=== PATIENT | female | born 1980 | race Hispanic/Latino ===

== ENCOUNTER 2017-06-11 14:29 | Emergency (ER) | payer OTHER ==
[2017-06-11 15:11] VITALS: BP 133/80
--- NOTE | 2017-06-11 15:20 | Emergency Department Report ---
HPI - General Chief Complaint: Seizure Time Seen by Provider: 06/11/17 15:13 - HPI HPI: PATIENT STATES H/O SEIZURE DISORDER, HAD A SEIZURE TODAY. PATIENT IS CURRENTLY ALERT AND ORIENTED, AND IS REFUSING ALL LABS AND TESTS, STATING SHE HAS A H/O SEIZURES AND HAS HAD THEM BEFORE. ED Past Medical Hx - Past Medical History Previous Medical History?: Yes Hx Seizures: Yes Hx Psychiatric Treatment: Yes (Bi-polar) - Family History Family history: hypertension - Social History Smoking Status: Current Every Day Smoker Substance Use Type: None ED Review of Systems ROS: Stated complaint: SEIZURES Other details as noted in HPI Comment: All other systems reviewed and negative Skin: as per HPI Neurological: other (SEIZURES) Physical Exam - Physical Exam Vital Signs: Vital Signs 06/11/17 06/11/17 14:32 15:10 Temperature 98.6 F 97.4 F L Pulse Rate 90 81 Respiratory 18 16 Rate Blood Pressure 138/90 Blood Pressure 133/80 [Right] O2 Sat by Pulse 100 99 Oximetry Physical Exam: - General Limitations: No Limitations General appearance: alert, in no apparent distress - Eye Eye exam: Present: normal appearance - Neck Neck exam: Present: normal inspection LUNGS: CTA BRADLEY CV: RRR, NL S1, S2 ABD: S,NT,ND POST BS NEURO: NO FOCAL DEFICITS - Back Exam Back exam: Absent: vertebral tenderness - Neurological Exam Neurological exam: Present: alert, oriented X3 - Psychiatric Psychiatric exam: Present: normal affect, normal mood - Skin Skin exam: Present: warm, dry, intact, normal color. Absent: rash ED Course Vital Signs 06/11/17 06/11/17 14:32 15:10 Temperature 98.6 F 97.4 F L Pulse Rate 90 81 Respiratory 18 16 Rate Blood Pressure 138/90 Blood Pressure 133/80 [Right] O2 Sat by Pulse 100 99 Oximetry Critical care attestation.: If time is entered above; I have spent that time in minutes in the direct care of this critically ill patient, excluding procedure time. ED Disposition Clinical Impression: Seizure disorder, Medical clearance for psychiatric admission Disposition: DC-01 TO HOME OR SELFCARE Is pt being admited?: No Does the pt Need Aspirin: No Condition: Stable Forms: Work/School Release Form(ED)
== END 2017-06-11 17:07 | disposition home or self-care (01) ==
LOC: ED 14:29
DX: G40.909 Epilepsy, unspecified, not intractable, without status epilepticus (principal); Z00.8 Encounter for other general examination; F31.9 Bipolar disorder, unspecified; F17.200 Nicotine dependence, unspecified, uncomplicated
CPT/HCPCS: 99283

== ENCOUNTER 2018-07-20 16:20 | Inpatient (IN) | payer MEDICARE, OTHER ==
[2018-07-20] MEDS ORDERED: ATIVAN IV ONE (16:31)
[2018-07-20] MEDS ORDERED: NACL 0.9% 1000 ML 1,000 ML IV ONE ×2 (16:31→16:32)
[2018-07-20] MEDS ORDERED: ATIVAN ONE (16:32)
--- NOTE | 2018-07-20 16:38 | Emergency Department Report ---
ED Seizure HPI - General Stated Complaint: SEIZURES Time Seen by Provider: 07/20/18 16:31 - History of Present Illness Initial Comments: Patient is 38 years old female with history of benzo abuse. Patient brought to the ER via EMS in status epilepticus. EMS stated that patient was seen at [place] this morning and she signed herself AMA and straight to [facility]. EMS gave Versed up to 10 mg that aborted the seizure for a while and then patient started seizing again. Upon arrival to the ER , airway is intact with an oxygen saturation of 98% on nonrebreather. Patient did not have an IV access, left extended jugular vein accessed by me and patient given 2 mg of Ativan that up oriented times seizure. Patient airway suctioned. MD Complaint: seizure -: Sudden Description of Episode: loss of consciousness, tonic-clonic movement, bladder incontinence, post-event confusion Seizure History: none Treatments Prior to Arrival: benzodiazepines - Related Data Allergies Allergy/AdvReac Type Severity Reaction Status Date / Time No Known Allergies Allergy Verified 06/11/17 14:32 ED Review of Systems ROS: Stated complaint: SEIZURES Other details as noted in HPI Comment: Unobtainable due to pts medical conditions ED Past Medical Hx - Past Medical History Hx Seizures: Yes Hx Psychiatric Treatment: Yes (Bi-polar) - Social History Smoking Status: Current Every Day Smoker Substance Use Type: None ED Physical Exam - General Limitations: Altered Mental Status General appearance: obtunded - Head Head exam: Present: atraumatic, normocephalic, normal inspection - Eye Eye exam: Present: normal appearance, PERRL - ENT ENT exam: Present: normal exam, mucous membranes moist, other (foaming at mouth) - Neck Neck exam: Present: normal inspection, full ROM. Absent: tenderness, meningismus, lymphadenopathy, thyromegaly - Respiratory Respiratory exam: Present: normal lung sounds bilaterally. Absent: respiratory distress, wheezes, rales, rhonchi, chest wall tenderness, accessory muscle use, decreased breath sounds, prolonged expiratory - Cardiovascular Cardiovascular Exam: Present: regular rate, normal rhythm, normal heart sounds - GI/Abdominal GI/Abdominal exam: Present: soft, normal bowel sounds. Absent: distended, tenderness, guarding, rebound, rigid, organomegaly, mass, bruit, pulsatile mass , hernia - Extremities Exam Extremities exam: Present: normal inspection, full ROM, normal capillary refill. Absent: tenderness, pedal edema, joint swelling, calf tenderness - Back Exam Back exam: Present: normal inspection, full ROM. Absent: tenderness, CVA tenderness (R), CVA tenderness (L), muscle spasm, paraspinal tenderness, vertebral tenderness - Neurological Exam Neurological exam: Present: alert, altered, CN II-XII intact, reflexes normal - Skin Skin exam: Present: warm, intact, normal color ED Course Vital Signs 07/20/18 07/20/18 07/20/18 16:31 16:50 17:16 Temperature 98.2 F Pulse Rate 110 H 94 H 87 Respiratory 24 22 18 Rate Blood Pressure 125/69 104/64 Blood Pressure 109/67 [Right] O2 Sat by Pulse 96 98 94 Oximetry 07/20/18 07/20/18 07/20/18 17:30 17:46 18:00 Temperature Pulse Rate 82 82 74 Respiratory 20 19 17 Rate Blood Pressure 102/65 108/65 109/69 Blood Pressure [Right] O2 Sat by Pulse 94 99 Oximetry 07/20/18 07/20/18 07/20/18 18:15 18:30 18:46 Temperature Pulse Rate 77 81 74 Respiratory 16 14 19 Rate Blood Pressure 115/73 115/73 127/75 Blood Pressure [Right] O2 Sat by Pulse 100 99 Oximetry 07/20/18 07/20/18 07/20/18 19:00 19:16 19:30 Temperature Pulse Rate 76 109 H 103 H Respiratory 10 L 10 L 12 Rate Blood Pressure 127/75 131/81 121/75 Blood Pressure [Right] O2 Sat by Pulse 100 100 94 Oximetry 07/20/18 07/20/18 07/20/18 19:46 20:00 20:16 Temperature Pulse Rate 88 77 76 Respiratory 13 15 17 Rate Blood Pressure 121/75 121/75 121/75 Blood Pressure [Right] O2 Sat by Pulse 98 100 100 Oximetry 07/20/18 07/20/18 07/20/18 20:21 20:30 20:46 Temperature Pulse Rate 74 74 Respiratory 18 19 16 Rate Blood Pressure 121/75 121/75 Blood Pressure [Right] O2 Sat by Pulse 100 99 100 Oximetry 07/20/18 07/20/18 07/20/18 21:00 21:16 21:30 Temperature Pulse Rate 75 100 H 90 Respiratory 19 17 13 Rate Blood Pressure 121/75 121/75 121/75 Blood Pressure [Right] O2 Sat by Pulse 99 100 98 Oximetry 07/20/18 07/20/18 07/20/18 21:46 22:00 22:16 Temperature Pulse Rate 73 74 81 Respiratory 9 L 14 15 Rate Blood Pressure 121/75 121/75 121/75 Blood Pressure [Right] O2 Sat by Pulse 96 95 95 Oximetry 07/20/18 07/20/18 22:30 22:46 Temperature Pulse Rate 81 87 Respiratory 23 14 Rate Blood Pressure 121/75 121/75 Blood Pressure [Right] O2 Sat by Pulse 93 69 L Oximetry - Reevaluation(s) Reevaluation #1: 07/20/18 16:45 Patient has been arrives to the room and able to get more information from him. He stated that patient does have history of seizure and she is on Keppra but she's not been taking her medication for the last 3 weeks. He stated the patient has been using methamphetamine and benzodiazepine. He stated that patient is a [facility] into [facility] for detox and he left to get some food and when he came back she was seizing. Reevaluation #2: 07/20/18 16:58 Patient resting comfortably, no seizure activity noticed. Oxygen saturation is 98% on 2 L nasal cannula. Patient at bedside. - EJ/Peripheral Line Neck L Time Out Performed: Yes Indications: nurses unable to establis Skin Cleansed in Sterile Fashion: Yes Size: 18 Dressing Placed: Tegaderm, tape Patient Tolerated Procedure: well, no complications ED Medical Decision Making - Lab Data Result diagrams: 07/20/18 16:31 07/20/18 18:58 - EKG Data -: EKG Interpreted by Me EKG shows normal: sinus rhythm Rate: normal - EKG Data Interpretation: no acute changes - Medical Decision Making Patient is 38 years old female with history of benzo abuse. Patient brought to the ER via EMS in status epilepticus. EMS stated that patient was seen at [place] this morning and she signed herself AMA and straight to [facility]. EMS gave Versed up to 10 mg that aborted the seizure for a while and then patient started seizing again. Upon arrival to the ER , airway is intact with an oxygen saturation of 98% on nonrebreather. Patient did not have an IV access, left extended jugular vein accessed by me and patient given 2 mg of Ativan that up oriented times seizure. Patient airway suctioned. I discussed the patient was Dr. Deleon, he agreed to admit the patient to his service. Critical Care Time: Yes Critical care time in (mins) excluding proc time.: 45 Critical care attestation.: If time is entered above; I have spent that time in minutes in the direct care of this critically ill patient, excluding procedure time. ED Disposition Clinical Impression: Status epilepticus, Benzodiazepine withdrawal, Hypokalemia Disposition: DC-09 OP ADMIT IP TO THIS HOSP Is pt being admited?: Yes Condition: Stable
[2018-07-20 16:45] LABS: Mean Corpuscular HGB Conc 31 % (30-34); Mean Corpuscular Hemoglobin 29 pg (28-32); Mean Corpuscular Volume 95 fl (79-97); Platelet Count 458 K/mm3 (140-440); Red Blood Count 4.81 M/mm3 (3.65-5.03); Red Cell Distribution Width 14.6 % (13.2-15.2)
[2018-07-20] MEDS ORDERED: KEPPRA 1,000 MG/NS 0.75% 100ML 1,000 MG/100 ML BAG IV ONE (16:46)
[2018-07-20 17:02] LABS: Hematocrit 45.6 % (30.3-42.9); Hemoglobin 14.2 gm/dl (10.1-14.3)
[2018-07-20 17:12] LABS: Alanine Aminotransferase 28 units/L (7-56); Albumin 4.9 g/dL (3.9-5); BUN/Creatinine Ratio 8; Blood Urea Nitrogen 9 mg/dL (7-17); Calcium 10.1 mg/dL (8.4-10.2); Hemolysis Index 5
[2018-07-20 17:34] LABS: Bilirubin,Direct < 0.2 mg/dL (0-0.2)
[2018-07-20 17:37] LABS: Amorphous Crystals,Urine Few; Bacteria,Urine 1+ /HPF (Negative); Bilirubin,Urine NEG (Negative); Blood,Urine MOD (Negative); Color,Urine Yellow (Yellow); Mucus,Urine FEW /HPF; Urobilinogen,Urine < 2.0 mg/dL (<2.0)
[2018-07-20 17:51] LABS: Cocaine Screen,Urine PRESUMPTIVE NEGATIVE; Opiate Screen,Urine PRESUMPTIVE NEGATIVE
[2018-07-20 17:58] LABS: Protein,Urine >500 mg/dL (Negative)
[2018-07-20 18:07] LABS: Amphetamine Screen,Urine PRESUMPTIVE POSITIVE; Benzodiazepines Screen,Urine PRESUMPTIVE POSITIVE; Cannabinoid Screen,Urine PRESUMPTIVE POSITIVE; Methadone Screen,Urine PRESUMPTIVE POSITIVE
[2018-07-20 19:15] LABS: Anisocytosis 1+; Band Neutrophils # (Manual) 0.1 K/mm3; Basophils % (Manual) 0 % (0.0-1.8); Eosinophils % (Manual) 0 % (0.0-4.3); Monocytes % (Manual) 5.5 % (0.0-7.3); Platelet Estimate Consistent w Auto; Total Cells Counted 200
[2018-07-20 19:33] LABS: BUN/Creatinine Ratio 11; Blood Urea Nitrogen 9 mg/dL (7-17); Calcium 9.5 mg/dL (8.4-10.2); Hemolysis Index 42
[2018-07-20] MEDS: KCL 10MEQ/100ML 10 MEQ/100 ML BAG IV SCH ×2 (19:55→21:12)
--- NOTE | 2018-07-20 20:38 | History and Physical Report ---
History of Present Illness Date of examination: 07/20/18 Date of admission: 07/20/18 Chief complaint: Multiple Seizures for 1 hr prior to admission History of present illness: RED DEVIL: Patient is 38 years old female with history of benzo abuse. Patient brought to the ER via EMS in status epilepticus. EMS stated that patient was seen at [place] this morning and she signed herself AMA and straight to [facility]. EMS gave Versed up to 10 mg that aborted the seizure for a while and then patient started seizing again. Upon arrival to the ER , airway is intact with an oxygen saturation of 98% on nonrebreather. Patient did not have an IV access, left external jugular vein accessed by ER physician and patient given 2 mg of Ativan. Patient airway suctioned. MD Complaint: seizure -: Sudden Description of Episode: loss of consciousness, tonic-clonic movement, bladder incontinence, post-event confusion Seizure History: none Treatments Prior to Arrival: benzodiazepines Past Medical History Hx Seizures: Yes Hx Psychiatric Treatment: Yes (Bi-polar) Social History Smoking Status: Current Every Day Smoker Substance Use Type: None Surgical history N/A Family History Not available Review of Systems ROS: Stated complaint: SEIZURES Other details as noted in HPI Comment: Unobtainable due to pts medical conditions Medications and Allergies Allergies Allergy/AdvReac Type Severity Reaction Status Date / Time No Known Allergies Allergy Verified 06/11/17 14:32 Home Medications Medication Instructions Recorded Confirmed Last Taken Type No Known Home Medications [No 07/21/18 07/21/18 Unknown History Reported Home Medications] Exam - Constitutional Vitals: Temp Pulse Resp BP Pulse Ox 98.2 F 88 13 121/75 98 07/20/18 16:31 07/20/18 19:46 07/20/18 19:46 07/20/18 19:46 07/20/18 19:46 General appearance: Present: mild distress, well-nourished - EENT Eyes: Present: PERRL ENT: hearing intact, clear oral mucosa - Neck Neck: Present: supple, normal ROM - Respiratory Respiratory effort: normal Respiratory: bilateral: CTA - Cardiovascular Heart rate: 78 Rhythm: regular Heart Sounds: Present: S1 & S2. Absent: rub, click - Extremities Extremities: no ischemia, pulses intact, pulses symmetrical, No edema Peripheral Pulses: within normal limits - Abdominal General gastrointestinal: Present: soft, non-tender, non-distended, normal bowel sounds Female genitourinary: Present: normal - Rectal Rectal Exam: deferred - Integumentary Integumentary: Present: clear, warm, dry - Musculoskeletal Musculoskeletal: strength equal bilaterally, generalized weakness - Psychiatric Psychiatric: other - Neurologic Neurologic: CNII-XII intact, moves all extremities, other (Lethargic) - Allied Health Allied health notes reviewed: nursing, case management Results - Labs CBC & Chem 7: 07/21/18 04:33 07/20/18 18:58 Labs: Laboratory Last Values WBC 21.5 K/mm3 (4.5-11.0) H 07/20/18 16:31 RBC 4.81 M/mm3 (3.65-5.03) 07/20/18 16:31 Hgb 14.2 gm/dl (10.1-14.3) 07/20/18 16:31 Hct 45.6 % (30.3-42.9) H 07/20/18 16:31 MCV 95 fl (79-97) 07/20/18 16:31 MCH 29 pg (28-32) 07/20/18 16:31 MCHC 31 % (30-34) 07/20/18 16:31 RDW 14.6 % (13.2-15.2) 07/20/18 16:31 Plt Count 458 K/mm3 (140-440) H 07/20/18 16:31 Lymph # Performance Reporter 07/20/18 16:31 Add Manual Diff Complete 07/20/18 16:31 Total Counted 200 07/20/18 16:31 Seg Neuts % (Manual) 49.0 % (40.0-70.0) 07/20/18 16:31 Band Neutrophils % 0.5 % 07/20/18 16:31 Lymphocytes % (Manual) 45.0 % (13.4-35.0) H 07/20/18 16:31 Reactive Lymphs % (Man) 0 % 07/20/18 16:31 Monocytes % (Manual) 5.5 % (0.0-7.3) 07/20/18 16:31 Eosinophils % (Manual) 0 % (0.0-4.3) 07/20/18 16:31 Basophils % (Manual) 0 % (0.0-1.8) 07/20/18 16:31 Metamyelocytes % 0 % 07/20/18 16:31 Myelocytes % 0 % 07/20/18 16:31 Promyelocytes % 0 % 07/20/18 16:31 Blast Cells % 0 % 07/20/18 16:31 Nucleated RBC % Not Reportable 07/20/18 16:31 Seg Neutrophils # Man 10.5 K/mm3 (1.8-7.7) H 07/20/18 16:31 Band Neutrophils # 0.1 K/mm3 07/20/18 16:31 Lymphocytes # (Manual) 9.7 K/mm3 (1.2-5.4) H 07/20/18 16:31 Abs React Lymphs (Man) 0.0 K/mm3 07/20/18 16:31 Monocytes # (Manual) 1.2 K/mm3 (0.0-0.8) H 07/20/18 16:31 Eosinophils # (Manual) 0.0 K/mm3 (0.0-0.4) 07/20/18 16:31 Basophils # (Manual) 0.0 K/mm3 (0.0-0.1) 07/20/18 16:31 Metamyelocytes # 0.0 K/mm3 07/20/18 16:31 Myelocytes # 0.0 K/mm3 07/20/18 16:31 Promyelocytes # 0.0 K/mm3 07/20/18 16:31 Blast Cells # 0.0 K/mm3 07/20/18 16:31 WBC Morphology Not Reportable 07/20/18 16:31 Hypersegmented Neuts Not Reportable 07/20/18 16:31 Hyposegmented Neuts Not Reportable 07/20/18 16:31 Hypogranular Neuts Not Reportable 07/20/18 16:31 Smudge Cells Not Reportable 07/20/18 16:31 Toxic Granulation Not Reportable 07/20/18 16:31 Toxic Vacuolation Not Reportable 07/20/18 16:31 Dohle Bodies Not Reportable 07/20/18 16:31 Pelger-Huet Anomaly Not Reportable 07/20/18 16:31 Ayleen Rods Not Reportable 07/20/18 16:31 Platelet Estimate Consistent w auto 07/20/18 16:31 Clumped Platelets Not Reportable 07/20/18 16:31 Plt Clumps, EDTA Not Reportable 07/20/18 16:31 Large Platelets Not Reportable 07/20/18 16:31 Giant Platelets Not Reportable 07/20/18 16:31 Platelet Satelliting Not Reportable 07/20/18 16:31 Plt Morphology Comment Not Reportable 07/20/18 16:31 RBC Morphology Not Reportable 07/20/18 16:31 Dimorphic RBCs Not Reportable 07/20/18 16:31 Polychromasia Not Reportable 07/20/18 16:31 Hypochromasia Not Reportable 07/20/18 16:31 Poikilocytosis Not Reportable 07/20/18 16:31 Anisocytosis 1+ 07/20/18 16:31 Microcytosis Not Reportable 07/20/18 16:31 Macrocytosis Not Reportable 07/20/18 16:31 Spherocytes Not Reportable 07/20/18 16:31 Pappenheimer Bodies Not Reportable 07/20/18 16:31 Sickle Cells Not Reportable 07/20/18 16:31 Target Cells Not Reportable 07/20/18 16:31 Tear Drop Cells Not Reportable 07/20/18 16:31 Ovalocytes Not Reportable 07/20/18 16:31 Helmet Cells Not Reportable 07/20/18 16:31 Ruelas-Mckenna Bodies Not Reportable 07/20/18 16:31 [place] Rings Not Reportable 07/20/18 16:31 Harpal Cells Not Reportable 07/20/18 16:31 Bite Cells Not Reportable 07/20/18 16:31 Crenated Cell Not Reportable 07/20/18 16:31 Elliptocytes Not Reportable 07/20/18 16:31 Acanthocytes (Spur) Not Reportable 07/20/18 16:31 Rouleaux Not Reportable 07/20/18 16:31 Hemoglobin C Crystals Not Reportable 07/20/18 16:31 Schistocytes Not Reportable 07/20/18 16:31 Malaria parasites Not Reportable 07/20/18 16:31 John Bodies Not Reportable 07/20/18 16:31 Hem Pathologist Commnt No 07/20/18 16:31 Sodium 138 mmol/L (137-145) 07/20/18 18:58 Potassium 3.4 mmol/L (3.6-5.0) L D 07/20/18 18:58 Chloride 98.7 mmol/L (98-107) 07/20/18 18:58 Carbon Dioxide 21 mmol/L (22-30) L D 07/20/18 18:58 Anion Gap 22 mmol/L 07/20/18 18:58 BUN 9 mg/dL (7-17) 07/20/18 18:58 Creatinine 0.8 mg/dL (0.7-1.2) 07/20/18 18:58 Estimated GFR > 60 ml/min 07/20/18 18:58 BUN/Creatinine Ratio 11 % 07/20/18 18:58 Glucose 99 mg/dL (65-100) 07/20/18 18:58 Calcium 9.5 mg/dL (8.4-10.2) 07/20/18 18:58 Total Bilirubin 0.70 mg/dL (0.1-1.2) 07/20/18 16:31 Direct Bilirubin < 0.2 mg/dL (0-0.2) 07/20/18 16:31 Indirect Bilirubin 0.5 mg/dL 07/20/18 16:31 AST 35 units/L (5-40) 07/20/18 16:31 ALT 28 units/L (7-56) 07/20/18 16:31 Alkaline Phosphatase 80 units/L (35-129) 07/20/18 16:31 Total Protein 8.5 g/dL (6.3-8.2) H 07/20/18 16:31 Albumin 4.9 g/dL (3.9-5) 07/20/18 16:31 Albumin/Globulin Ratio 1.4 % 07/20/18 16:31 HCG, Qual Negative (Negative) 07/20/18 16:31 Urine Color Yellow (Yellow) 07/20/18 16:31 Urine Turbidity Slightly-cloudy (Clear) 07/20/18 16:31 Urine pH 5.0 (5.0-7.0) 07/20/18 16:31 Ur Specific [place] 1.011 (1.003-1.030) 07/20/18 16:31 Urine Protein >500 mg/dL (Negative) 07/20/18 16:31 Urine Glucose (UA) 50 mg/dL (Negative) 07/20/18 16:31 Urine Ketones Neg mg/dL (Negative) 07/20/18 16:31 Urine Blood Mod (Negative) 07/20/18 16:31 Urine Nitrite Neg (Negative) 07/20/18 16:31 Urine Bilirubin Neg (Negative) 07/20/18 16:31 Urine Urobilinogen < 2.0 mg/dL (<2.0) 07/20/18 16:31 Ur Leukocyte Esterase Neg (Negative) 07/20/18 16:31 Urine WBC (Auto) 3.0 /HPF (0.0-6.0) 07/20/18 16:31 Urine RBC (Auto) 7.0 /HPF (0.0-6.0) 07/20/18 16:31 U Epithel Cells (Auto) 1.0 /HPF (0-13.0) 07/20/18 16:31 Urine Bacteria (Auto) 1+ /HPF (Negative) 07/20/18 16:31 Amorphous Crystals Few 07/20/18 16:31 Urine Mucus Few /HPF 07/20/18 16:31 Salicylates < 0.3 mg/dL (2.8-20.0) L 07/20/18 16:31 Urine Opiates Screen Presumptive negative 07/20/18 16:31 Urine Methadone Screen Presumptive positive 07/20/18 16:31 Acetaminophen < 5.0 ug/mL (10.0-30.0) L 07/20/18 16:31 Ur Barbiturates Screen Presumptive negative 07/20/18 16:31 Ur Phencyclidine Scrn Presumptive negative 07/20/18 16:31 Ur Amphetamines Screen Presumptive positive 07/20/18 16:31 U Benzodiazepines Scrn Presumptive positive 07/20/18 16:31 Urine Cocaine Screen Presumptive negative 07/20/18 16:31 U Marijuana (THC) Screen Presumptive positive 07/20/18 16:31 Drugs of Abuse Note Disclamer 07/20/18 16:31 Plasma/Serum Alcohol < 0.01 % (0-0.07) 07/20/18 16:31 - Imaging and Cardiology EKG: report reviewed Assessment and Plan Advance Directives: Yes (Full code) VTE prophylaxis?: Chemical Plan of care discussed with patient/family: Yes - Patient Problems (1) Status epilepticus Current Visit: Yes Status: Acute Plan to address problem: History of Antiepileptic medications unknown IV Keppra 750 q12h Initiated To be transitioned to Oral keppra (2) Acute encephalopathy Current Visit: Yes Status: Acute Plan to address problem: Sec to Seizures and Polysubstane abuse (3) Leukocytosis Current Visit: Yes Status: Acute Qualifiers: Leukocytosis type: unspecified Qualified Code(s): D72.829 - Elevated white blood cell count, unspecified Plan to address problem: Sec to Demargination NO abx initiated No source of infection (4) Benzodiazepine withdrawal Current Visit: Yes Status: Acute Qualifiers: Complication of substance-induced condition: with perceptual disturbance Qualified Code(s): 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
[2018-07-20] MEDS ORDERED: PERCOCET 5/325 PO PRN (20:39)
[2018-07-20] MEDS ORDERED: TYLENOL PO PRN (20:39)
[2018-07-20] MEDS ORDERED: MORPHINE IV PRN (20:39)
[2018-07-20] MEDS ORDERED: ZOFRAN IV PRN (20:39)
[2018-07-20] MEDS ORDERED: SODIUM CHLORIDE FLUSH SYRINGE 10 ML IV PRN (20:39)
[2018-07-20] MEDS: SODIUM CHLORIDE FLUSH SYRINGE 10 ML IV SCH (22:00)
[2018-07-20] MEDS: KEPPRA 750 MG in D5W 100 ML IV SCH (22:00)
[2018-07-21 05:46] LABS: Basophils % (Auto) 0.3 % (0.0-1.8); Eosinophils % (Auto) 0.2 % (0.0-4.3); Hematocrit 38.7 % (30.3-42.9); Hemoglobin 13.2 gm/dl (10.1-14.3); Lymphocytes # (Auto) 3.7 K/mm3 (1.2-5.4); Mean Corpuscular HGB Conc 34 % (30-34); Mean Corpuscular Hemoglobin 29 pg (28-32); Mean Corpuscular Volume 86 fl (79-97); Monocytes # (Auto) 1.2 K/mm3 (0.0-0.8); Monocytes % (Auto) 8.8 % (0.0-7.3); Platelet Count 308 K/mm3 (140-440); Red Blood Count 4.52 M/mm3 (3.65-5.03); Red Cell Distribution Width 13.4 % (13.2-15.2)
[2018-07-21 06:16] LABS: Alanine Aminotransferase 23 units/L (7-56); BUN/Creatinine Ratio 9; Blood Urea Nitrogen 6 mg/dL (7-17); Calcium 8.8 mg/dL (8.4-10.2); Hemolysis Index 16
[2018-07-21] MEDS ORDERED: K-DUR PO ONE ×3 (06:31→14:55)
[2018-07-21] MEDS: KEPPRA 750 MG in D5W 100 ML IV SCH ×2 (10:01→21:47)
[2018-07-21] MEDS: SODIUM CHLORIDE FLUSH SYRINGE 10 ML IV SCH ×2 (10:01→21:48)
[2018-07-21] MEDS: HABITROL TD SCH (11:11)
[2018-07-21] MEDS ORDERED: K-DUR PO SCH (14:00)
--- NOTE | 2018-07-21 16:10 | Progress Note ---
Assessment and Plan Assessment and plan: Patient is 38 yo woman with a history of tobacco dependency, bipolar disorder, polysubstance abuse and seizure disorder who presents to [facility] ED after multiple seizures episodes with confusion. It appears patient was at [facility] and signed out AMA and went to [place] inpatient psych facility where she had multiple seizures, hence the admission. * UDS +methadone, amphetamines, bzd, marijuana Status epilepticus History of Antiepileptic medications unknown, noncompliant IV Keppra 750 q12h Initiated To be transitioned to Oral keppra Order CT head Acute encephalopathy Sec to Seizures and Polysubstane abuse Leukocytosis Sec to Demargination NO abx initiated No source of infection Benzodiazepine withdrawal CIWA protocol initiated Hypokalemia Current Visit: Yes Status: Acute Plan to address problem: supplemented Polysubstance (excluding opioids) dependence Patient drug screen positive for TC Benzos Methadone and AMphetamines consult requested group home counselor of tobacco dependency, ordered nicotine patch Bipolar 1 disorder consult DVT prophylaxis On Lovenox History Interval history: Patient was seen and examined. Follow-up on current diagnosis of seizures. Overnight uneventful. Patient denies any chest pain, shortness breath, nausea/ vomiting or severe headaches. Imaging, nursing note, chart, labs and old chart reviewed. Discussed with patient. GEN: unkempt, NAD, Awake, Alert, Orientated x 3 HEENT: NCAT, EOMI, PERRL, OP Clear NECK: supple, no adenopathy, no thyromegaly, no JVD CVS/HEART: RRR, normal S1S2, pulses present bilaterally CHEST/LUNGS: CTA B, Symmetrical chest expansion, good air entry bilaterally GI/Abdomen: soft, NTND, good bowel sounds, no guarding or rebound /Bladder: no suprapubic tenderness, no CVA or paraspinal tenderness EXT/Skin: no c/c/e, multiple nerves scratches on arms and legs MSK: FROM x 4 Neuro: CN 2-12 grossly intact, no new focal deficits Psych: anxious Hospitalist Physical - Constitutional Vitals: Temp Pulse Resp BP Pulse Ox 98.0 F 79 18 139/91 100 07/21/18 12:58 07/21/18 12:58 07/21/18 12:58 07/21/18 12:58 07/21/18 12:58 General appearance: Present: mild distress, well-nourished Results - Labs CBC & Chem 7: 07/21/18 04:33 07/21/18 04:33 Labs: Laboratory Last Values WBC 14.0 K/mm3 (4.5-11.0) H 07/21/18 04:33 RBC 4.52 M/mm3 (3.65-5.03) 07/21/18 04:33 Hgb 13.2 gm/dl (10.1-14.3) 07/21/18 04:33 Hct 38.7 % (30.3-42.9) D 07/21/18 04:33 MCV 86 fl (79-97) 07/21/18 04:33 MCH 29 pg (28-32) 07/21/18 04:33 MCHC 34 % (30-34) 07/21/18 04:33 RDW 13.4 % (13.2-15.2) 07/21/18 04:33 Plt Count 308 K/mm3 (140-440) 07/21/18 04:33 Lymph % (Auto) 26.0 % (13.4-35.0) 07/21/18 04:33 Guthrie % (Auto) 8.8 % (0.0-7.3) H 07/21/18 04:33 Eos % (Auto) 0.2 % (0.0-4.3) 07/21/18 04:33 Baso % (Auto) 0.3 % (0.0-1.8) 07/21/18 04:33 Lymph # 3.7 K/mm3 (1.2-5.4) 07/21/18 04:33 Guthrie # 1.2 K/mm3 (0.0-0.8) H 07/21/18 04:33 Eos # 0.0 K/mm3 (0.0-0.4) 07/21/18 04:33 Baso # 0.0 K/mm3 (0.0-0.1) 07/21/18 04:33 Add Manual Diff Complete 07/20/18 16:31 Total Counted 200 07/20/18 16:31 Seg Neutrophils % 64.7 % (40.0-70.0) 07/21/18 04:33 Seg Neuts % (Manual) 49.0 % (40.0-70.0) 07/20/18 16:31 Band Neutrophils % 0.5 % 07/20/18 16:31 Lymphocytes % (Manual) 45.0 % (13.4-35.0) H 07/20/18 16:31 Reactive Lymphs % (Man) 0 % 07/20/18 16:31 Monocytes % (Manual) 5.5 % (0.0-7.3) 07/20/18 16:31 Eosinophils % (Manual) 0 % (0.0-4.3) 07/20/18 16:31 Basophils % (Manual) 0 % (0.0-1.8) 07/20/18 16:31 Metamyelocytes % 0 % 07/20/18 16:31 Myelocytes % 0 % 07/20/18 16:31 Promyelocytes % 0 % 07/20/18 16:31 Blast Cells % 0 % 07/20/18 16:31 Nucleated RBC % Not Reportable 07/20/18 16:31 Seg Neutrophils # 9.1 K/mm3 (1.8-7.7) H 07/21/18 04:33 Seg Neutrophils # Man 10.5 K/mm3 (1.8-7.7) H 07/20/18 16:31 Band Neutrophils # 0.1 K/mm3 07/20/18 16:31 Lymphocytes # (Manual) 9.7 K/mm3 (1.2-5.4) H 07/20/18 16:31 Abs React Lymphs (Man) 0.0 K/mm3 07/20/18 16:31 Monocytes # (Manual) 1.2 K/mm3 (0.0-0.8) H 07/20/18 16:31 Eosinophils # (Manual) 0.0 K/mm3 (0.0-0.4) 07/20/18 16:31 Basophils # (Manual) 0.0 K/mm3 (0.0-0.1) 07/20/18 16:31 Metamyelocytes # 0.0 K/mm3 07/20/18 16:31 Myelocytes # 0.0 K/mm3 07/20/18 16:31 Promyelocytes # 0.0 K/mm3 07/20/18 16:31 Blast Cells # 0.0 K/mm3 07/20/18 16:31 WBC Morphology Not Reportable 07/20/18 16:31 Hypersegmented Neuts Not Reportable 07/20/18 16:31 Hyposegmented Neuts Not Reportable 07/20/18 16:31 Hypogranular Neuts Not Reportable 07/20/18 16:31 Smudge Cells Not Reportable 07/20/18 16:31 Toxic Granulation Not Reportable 07/20/18 16:31 Toxic Vacuolation Not Reportable 07/20/18 16:31 Dohle Bodies Not Reportable 07/20/18 16:31 Pelger-Huet Anomaly Not Reportable 07/20/18 16:31 Ayleen Rods Not Reportable 07/20/18 16:31 Platelet Estimate Consistent w auto 07/20/18 16:31 Clumped Platelets Not Reportable 07/20/18 16:31 Plt Clumps, EDTA Not Reportable 07/20/18 16:31 Large Platelets Not Reportable 07/20/18 16:31 Giant Platelets Not Reportable 07/20/18 16:31 Platelet Satelliting Not Reportable 07/20/18 16:31 Plt Morphology Comment Not Reportable 07/20/18 16:31 RBC Morphology Not Reportable 07/20/18 16:31 Dimorphic RBCs Not Reportable 07/20/18 16:31 Polychromasia Not Reportable 07/20/18 16:31 Hypochromasia Not Reportable 07/20/18 16:31 Poikilocytosis Not Reportable 07/20/18 16:31 Anisocytosis 1+ 07/20/18 16:31 Microcytosis Not Reportable 07/20/18 16:31 Macrocytosis Not Reportable 07/20/18 16:31 Spherocytes Not Reportable 07/20/18 16:31 Pappenheimer Bodies Not Reportable 07/20/18 16:31 Sickle Cells Not Reportable 07/20/18 16:31 Target Cells Not Reportable 07/20/18 16:31 Tear Drop Cells Not Reportable 07/20/18 16:31 Ovalocytes Not Reportable 07/20/18 16:31 Helmet Cells Not Reportable 07/20/18 16:31 Ruelas-Nettleton Bodies Not Reportable 07/20/18 16:31 Panhandle Rings Not Reportable 07/20/18 16:31 Penn Cells Not Reportable 07/20/18 16:31 Bite Cells Not Reportable 07/20/18 16:31 Crenated Cell Not Reportable 07/20/18 16:31 Elliptocytes Not Reportable 07/20/18 16:31 Acanthocytes (Spur) Not Reportable 07/20/18 16:31 Rouleaux Not Reportable 07/20/18 16:31 Hemoglobin C Crystals Not Reportable 07/20/18 16:31 Schistocytes Not Reportable 07/20/18 16:31 Malaria parasites Not Reportable 07/20/18 16:31 John Bodies Not Reportable 07/20/18 16:31 Hem Pathologist Commnt No 07/20/18 16:31 Sodium 140 mmol/L (137-145) 07/21/18 04:33 Potassium 2.7 mmol/L (3.6-5.0) L* D 07/21/18 04:33 Chloride 100.1 mmol/L (98-107) 07/21/18 04:33 Carbon Dioxide 29 mmol/L (22-30) D 07/21/18 04:33 Anion Gap 14 mmol/L 07/21/18 04:33 BUN 6 mg/dL (7-17) L 07/21/18 04:33 Creatinine 0.7 mg/dL (0.7-1.2) 07/21/18 04:33 Estimated GFR > 60 ml/min 07/21/18 04:33 BUN/Creatinine Ratio 9 % 07/21/18 04:33 Glucose 83 mg/dL (65-100) 07/21/18 04:33 Hemoglobin A1c 5.6 % (4-6) 07/20/18 14:31 Calcium 8.8 mg/dL (8.4-10.2) 07/21/18 04:33 Total Bilirubin 0.70 mg/dL (0.1-1.2) 07/21/18 04:33 Direct Bilirubin < 0.2 mg/dL (0-0.2) 07/20/18 16:31 Indirect Bilirubin 0.5 mg/dL 07/20/18 16:31 AST 40 units/L (5-40) 07/21/18 04:33 ALT 23 units/L (7-56) 07/21/18 04:33 Alkaline Phosphatase 67 units/L (35-129) 07/21/18 04:33 Total Protein 6.8 g/dL (6.3-8.2) 09/27/18 04:33 Albumin 4.0 g/dL (3.9-5) 07/21/18 04:33 Albumin/Globulin Ratio 1.4 % 07/21/18 04:33 HCG, Qual Negative (Negative) 07/20/18 16:31 Urine Color Yellow (Yellow) 07/20/18 16:31 Urine Turbidity Slightly-cloudy (Clear) 07/20/18 16:31 Urine pH 5.0 (5.0-7.0) 07/20/18 16:31 Ur Specific Webster 1.011 (1.003-1.030) 07/20/18 16:31 Urine Protein >500 mg/dL (Negative) 07/20/18 16:31 Urine Glucose (UA) 50 mg/dL (Negative) 07/20/18 16:31 Urine Ketones Neg mg/dL (Negative) 07/20/18 16:31 Urine Blood Mod (Negative) 07/20/18 16:31 Urine Nitrite Neg (Negative) 07/20/18 16:31 Urine Bilirubin Neg (Negative) 07/20/18 16:31 Urine Urobilinogen < 2.0 mg/dL (<2.0) 07/20/18 16:31 Ur Leukocyte Esterase Neg (Negative) 07/20/18 16:31 Urine WBC (Auto) 3.0 /HPF (0.0-6.0) 07/20/18 16:31 Urine RBC (Auto) 7.0 /HPF (0.0-6.0) 07/20/18 16:31 U Epithel Cells (Auto) 1.0 /HPF (0-13.0) 07/20/18 16:31 Urine Bacteria (Auto) 1+ /HPF (Negative) 07/20/18 16:31 Amorphous Crystals Few 07/20/18 16:31 Urine Mucus Few /HPF 07/20/18 16:31 Salicylates < 0.3 mg/dL (2.8-20.0) L 07/20/18 16:31 Urine Opiates Screen Presumptive negative 07/20/18 16:31 Urine Methadone Screen Presumptive positive 07/20/18 16:31 Acetaminophen < 5.0 ug/mL (10.0-30.0) L 07/20/18 16:31 Ur Barbiturates Screen Presumptive negative 07/20/18 16:31 Ur Phencyclidine Scrn Presumptive negative 07/20/18 16:31 Ur Amphetamines Screen Presumptive positive 07/20/18 16:31 U Benzodiazepines Scrn Presumptive positive 07/20/18 16:31 Urine Cocaine Screen Presumptive negative 07/20/18 16:31 U Marijuana (THC) Screen Presumptive positive 07/20/18 16:31 Drugs of Abuse Note Disclamer 07/20/18 16:31 Plasma/Serum Alcohol < 0.01 % (0-0.07) 07/20/18 16:31
--- NOTE | 2018-07-21 17:41 | Cat Scan Report ---
FINAL REPORT EXAM: CT HEAD/BRAIN WO CON HISTORY: seizures TECHNIQUE: CT examination of the head without IV contrast PRIORS: None. FINDINGS: No acute air-fluid level visualized in the included air-filled sinuses. Bone windows demonstrate no acute fracture. The brain is without mass, mass effect, hemorrhage, or acute infarct. There is no extra-axial intracranial bleed, brain bleed, or midline shift. The ventricles and sulci are age-appropriate. IMPRESSION: No acute CVA, intracranial bleed, or brain mass
[2018-07-21] MEDS: NACL 0.9% 1000 ML 1,000 ML IV SCH (17:42)
[2018-07-22] MEDS: NACL 0.9% 1000 ML 1,000 ML IV SCH (05:25)
[2018-07-22 05:50] LABS: Hematocrit 39.7 % (30.3-42.9); Hemoglobin 13.6 gm/dl (10.1-14.3); Mean Corpuscular HGB Conc 34 % (30-34); Mean Corpuscular Hemoglobin 30 pg (28-32); Mean Corpuscular Volume 87 fl (79-97); Platelet Count 252 K/mm3 (140-440); Red Blood Count 4.56 M/mm3 (3.65-5.03); Red Cell Distribution Width 13.7 % (13.2-15.2)
[2018-07-22 06:13] LABS: BUN/Creatinine Ratio 14; Blood Urea Nitrogen 11 mg/dL (7-17); Calcium 8.5 mg/dL (8.4-10.2); Hemolysis Index 13
[2018-07-22] MEDS: HABITROL TD SCH (09:04)
[2018-07-22] MEDS: SODIUM CHLORIDE FLUSH SYRINGE 10 ML IV SCH (09:04)
[2018-07-22] MEDS: KEPPRA 750 MG in D5W 100 ML IV SCH (09:04)
--- NOTE | 2018-07-22 10:28 | Discharge Summary ---
Providers - Providers Date of Admission: 07/20/18 20:03 Date of discharge: 07/22/18 Attending physician: SERGEI PAGE 07/21/18 06:32 Consult to Mental Health [CONS] Routine Reason For Exam: Bipolar,polysubstance abuse Place consult to:: y Notified:: sanchez Phone number called:: [phone] Was contact made?: Yes Time called:: 08:39 Primary care physician: BLOCK ENGRAVER Hospitalization Condition: Stable Hospital course: Patient is 38 yo woman with a history of tobacco dependency, bipolar disorder, polysubstance abuse and seizure disorder who presents to [facility] ED after multiple seizures episodes with confusion. It appears patient was at [facility] and signed out AMA and went to [facility] facility where she had multiple seizures, hence the admission. * UDS +methadone, amphetamines, bzd, marijuana Status epilepticus, resolved due to noncompliance with anti-seizure medication Acute encephalopathy, resolved Leukocytosis, resolved Benzodiazepine withdrawal, resolved Hypokalemia, supplemented Polysubstance (excluding opioids) dependence Patient drug screen positive for TC Benzos Methadone and AMphetamines consult requested financial services counselor of tobacco dependency, ordered nicotine patch Bipolar 1 disorder consult Counseling done Disposition: DC-01 TO HOME OR SELFCARE Time spent for discharge: 32 min Core Measure Documentation - Palliative Care Palliative Care/ Comfort Measures: Not Applicable - Core Measures Any of the following diagnoses?: none - VTE Discharge Requirements Deep Vein Thrombosis/Pulmonary Embolism Present on Admission: No Has pt received <5 days of overlap therapy or INR<2.0: No Anticoagulant overlap therapy prescribed at discharge: No Contraindication No Overlap Therapy order at DC: Not Indicated Exam - Constitutional Vitals: Temp Pulse Resp BP Pulse Ox 97.7 F 79 18 126/85 100 07/22/18 09:01 07/22/18 09:01 07/22/18 09:01 07/22/18 09:01 07/22/18 09:01 General appearance: Present: no acute distress - EENT Eyes: Present: PERRL ENT: hearing intact - Neck Neck: Present: supple, normal ROM - Respiratory Respiratory effort: normal Respiratory: bilateral: CTA - Cardiovascular Rhythm: regular Heart Sounds: Present: S1 & S2 Peripheral Pulses: within normal limits - Abdominal General gastrointestinal: Present: soft, non-tender, non-distended, normal bowel sounds - Integumentary Integumentary: Present: clear (scratches on arms and legs) - Musculoskeletal Musculoskeletal: strength equal bilaterally - Psychiatric Psychiatric: appropriate mood/affect - Neurologic Neurologic: CNII-XII intact, no focal deficits, moves all extremities - Allied Health Allied health notes reviewed: nursing Plan Activity: no driving until cleared by PCP, other (no strenous activity until cleared by pcp) Diet: regular Special Instructions: smoking cessation Follow up with: ELIGIO BAKER [Staff Physician] - 7 Days LAYNE STALEY MD [Staff Physician] - 7 Days Prescriptions: Acetaminophen [Acetaminophen TAB] 650 mg PO Q4H PRN #15 tablet PRN Reason: Pain MILD(1-3)/Fever >100.5/[place] levETIRAcetam [Keppra TAB] 750 mg PO BID #60 tablet Nicotine [Habitrol] 21 mg TD QDAY PRN #14 patch PRN Reason: Nicotine Cravings
[2018-07-22] MEDS ORDERED: K-DUR PO ONE (11:22)
[2018-07-22 12:42] VITALS: BP 113/63
--- NOTE | 2018-07-22 13:44 | Consultation ---
History of Present Illness - Reason for Consult Consult date: 07/22/18 Reason for consult: Mental Health Evaluation Requesting physician: SERGEI PAGE - Chief Complaint Chief complaint: "I need to stop using drugs" - History of Present Psychiatric Illness 38 years old white female with history of seizures. Today the patient is calm and cooperative during the assessment. She stated that she used recreational drugs for the last 12 years. She denies having a mood do or another mental health dx. Per her Mr Pavan, who was at the bedside, he stated that his "issue" is substance abuse. He stated that she buys "xanax/street drugs " often. He confirmed that the patient do not have a hx of bipolar do. The patient denies SI/HI's and AVH's. She denies erratic sleep and a poor appetite. She denies depression or having manic episodes in the past. She denies alcohol consumption (etoh). The patient is willing to try rehab services for her substance abuse. Medications and Allergies Allergies Allergy/AdvReac Type Severity Reaction Status Date / Time No Known Allergies Allergy Verified 06/11/17 14:32 Home Medications Medication Instructions Recorded Confirmed Last Taken Type Acetaminophen [Acetaminophen TAB] 650 mg PO Q4H PRN #15 tablet 07/22/18 Unknown Rx Nicotine [Habitrol] 21 mg TD QDAY PRN #14 patch 07/22/18 Unknown Rx levETIRAcetam [Keppra TAB] 750 mg PO BID #60 tablet 07/22/18 Unknown Rx Active Meds: Active Medications Acetaminophen (Tylenol) 650 mg PO Q4H PRN PRN Reason: Pain MILD(1-3)/Fever >100.5/[place] Sodium Chloride (Nacl 0.9% 1000 Ml) 1,000 mls @ 75 mls/hr IV DIRECT ASHLIE Last Admin: 07/22/18 05:25 Dose: 75 mls/hr Levetiracetam 750 mg/ Dextrose 107.5 mls @ 400 mls/hr IV Q12HR ASHLIE Last Admin: 07/22/18 09:04 Dose: 400 mls/hr Morphine Sulfate (Morphine) 2 mg IV Q4H PRN PRN Reason: Pain, Moderate (4-6) Nicotine (Habitrol) 21 mg TD QDAY ASHLIE Last Admin: 07/22/18 09:04 Dose: 21 mg Ondansetron HCl (Zofran) 4 mg IV Q8H PRN PRN Reason: Nausea And Vomiting Oxycodone/Acetaminophen (Percocet 5/325) 1 tab PO Q6H PRN PRN Reason: Pain, Moderate (4-6) Sodium Chloride (Sodium Chloride Flush Syringe 10 Ml) 10 ml IV BID ASHLIE Last Admin: 07/22/18 09:04 Dose: 10 ml Sodium Chloride (Sodium Chloride Flush Syringe 10 Ml) 10 ml IV PRN PRN PRN Reason: LINE FLUSH Past psychiatric history - Past Medical History Past Medical History: seizures Past Surgical History: No surgical history - past Psychiatric treatment and history psychiatric treatment history: Hx of Substance abuse. Denies a fam psy hx. - Social History Social history: lives with family Mental Status Exam - Vital signs Last Vital Signs Temp 98.4 F 07/22/18 12:41 Pulse 82 07/22/18 12:41 Resp 18 07/22/18 12:41 BP 113/63 07/22/18 12:41 Pulse Ox 100 07/22/18 12:41 - Exam Narrative exam: MSE: Appearance: calm, cooperative Behavior: regular eye contact Speech: regular rate and tone Mood: "okay" Affect: congruent to mood Thought Process: logical Thought Content: denies SI/HI's and AVH's Motor Activity: sitting up in bed Cognition: A/O x 3 Insight: fair Judgment: fair Results Result Diagrams: 07/22/18 04:55 07/22/18 04:55 Abnormal lab results 07/22/18 Range/Units 04:55 Potassium 3.4 L D (3.6-5.0) mmol/L All other labs normal. Assessment and Plan Assessment and plan: Impression: Substance Use DO (amphetamines). Cannabis Use DO. Today the patient is calm and cooperative during the assessment. The patient is positive for methadone and benzos. DDx: R/O Mood DO Recommendation/Plan: The patient can follow up with [facility] for outpatient psy/rehab services.
== END 2018-07-22 15:10 | disposition home or self-care (01) | DRG 100 ==
LOC: ED 16:20 → 4A 20:03
PROVIDERS: ADMIT Internal Medicine; ATTEND Internal Medicine
PROC: 05HQ33Z Insertion of Infusion Device into Left External Jugular Vein, Percutaneous Approach (ICD-10-PCS; principal; 2018-07-20)
DX: G40.901 Epilepsy, unspecified, not intractable, with status epilepticus (principal); G93.40 Encephalopathy, unspecified; F19.20 Other psychoactive substance dependence, uncomplicated; F13.232 Sedative, hypnotic or anxiolytic dependence with withdrawal with perceptual disturbance; E87.6 Hypokalemia; F17.200 Nicotine dependence, unspecified, uncomplicated; F31.9 Bipolar disorder, unspecified; D72.829 Elevated white blood cell count, unspecified; Z71.89 Other specified counseling; Z79.899 Other long term (current) drug therapy; Z91.14 Patient's other noncompliance with medication regimen
CPT/HCPCS: 36415; 70450; 80048; 80053; 80074; 80307; 80320; 81001; 83036; 83735; 84703; 85007; 85025; 85027; 93005; 93010; 99406; G0480; J1953; J2060; J3480; J7030